=== PATIENT | female | born 2000 | race Hispanic/Latino ===

== ENCOUNTER 2021-04-21 21:37 | Emergency (ER) | payer SELFPAY ==
[2021-04-21] MEDS ORDERED: Ibuprofen 200 MG TAB ONE (22:42)
[2021-04-21] MEDS ORDERED: Ondansetron ODT 4 MG TAB ONE (22:42)
[2021-04-22 20:41] LABS: SARS-CoV-2 PCR by NAA Not Detected (NotDetected)
== END 2021-04-21 23:41 | disposition home or self-care (01) ==
LOC: CSHERS 21:37
DX: R11.2 Nausea with vomiting, unspecified (principal); Z20.822 Contact with and (suspected) exposure to COVID-19
CPT/HCPCS: 99284; Q0162; U0003; U0005